=== PATIENT | male | born 1995 | race Caucasian/White ===

== ENCOUNTER 2017-11-20 19:33 | Emergency (ER) | payer OTHER ==
[~2017-11-20] VITALS: Ht 175.3 cm; Wt 86.2 kg
[2017-11-20] MEDS ORDERED: IBUP-1490 PO (19:55)
--- NOTE | 2017-11-20 21:30 | NUR ---
Patient discharged to home in stable conditon. Written and verbal after care instructions given. Patient verbalizes understanding of instructions.
== END 2017-11-20 21:31 | disposition home or self-care (01) ==
LOC: ER 19:36
DX: K59.00 Constipation, unspecified (principal); K64.9 Unspecified hemorrhoids; Z79.1 Long term (current) use of non-steroidal anti-inflammatories (NSAID)
CPT/HCPCS: A4663